=== PATIENT | male | born 1990 | race Caucasian/White ===

== ENCOUNTER 2017-03-29 17:50 | Emergency (ER) | payer BC ==
[2017-03-29] MEDS ORDERED: LORazepam TAB(*) 0.5 MG PO ONE (18:07)
[2017-03-29 18:13] VITALS: BP 123/80
[2017-03-29] MEDS ORDERED: LORazepam TAB(*) 1 MG PO ONE (19:25)
--- NOTE | 2017-03-29 20:12 | ED ---
Psychiatric Complaint - HPI Summary HPI Summary: Patient presents to the ED with CC of anxiety. His is currently in the ED and he checked in immediately following stating he gets anxiety about family members health. His heart began to race and he felt flushed per patient. He is resting comfortably and sleeping on physical exam by provider. He states he developed anxiety about 1 year ago after his grandfather had an episode in the hospital. He states he does not wish to be with his as this would worsen his anxiety, but does not want to go home because he feels he should be with her. Denies other pain or complaints. Prescribed an anxiety medication which has at home, but has not taken anything. Does not recall the name of the medication. - History Of Current Complaint Chief Complaint: EDGeneral Time Seen by Provider: 03/29/17 18:06 Hx Obtained From: Patient Onset/Duration: Sudden Onset Timing: Constant Severity Initially: Moderate Severity Currently: None Character: Anxious Aggravating Factor(s): Recent Stress Associated Signs And Symptoms: Positive: Negative - Risk Factor(s) Completed Suicide Risk Factors: Male - Allergies/Home Medications Allergies/Adverse Reactions: Allergies Allergy/AdvReac Type Severity Reaction Status Date / Time Amoxicillin Allergy Intermediate Rash Verified 12/31/15 18:39 PMH/Surg Hx/FS Hx/Imm Hx Previously Healthy: Yes Endocrine/Hematology History: Denies: Hx Diabetes, Hx Thyroid Disease Cardiovascular History: Denies: Hx Hypertension Respiratory History: Denies: Hx Asthma, Hx Chronic Obstructive Pulmonary Disease (COPD) GI History: Denies: Hx Ulcer - Surgical History Surgery Procedure, Year, and Place: part of small intestine removed - Immunization History Date of Tetanus Vaccine: UTD Date of Influenza Vaccine: NO Hx Pertussis Vaccination: No Immunizations Up to Date: Unable to Obtain/Confirm Infectious Disease History: No Infectious Disease History: Denies: Hx Clostridium Difficile, Hx Hepatitis, Hx Human Immunodeficiency Virus (HIV), Hx of Known/Suspected MRSA, Hx Shingles, Hx Tuberculosis, Hx Known/ Suspected VRE, Hx Known/Suspected VRSA, History Other Infectious Disease, Traveled Outside the [place] in Last 30 Days - Family History Known Family History: Positive: Cardiac Disease, Hypertension Negative: Diabetes - Social History Occupation: Unemployed Lives: With Family Alcohol Use: Rare Hx Substance Use: No Substance Use Type: Reports: None Hx Tobacco Use: No Smoking Status (MU): Never Smoked Tobacco Review of Systems Constitutional: Negative Negative: Fever, Chills, Fatigue Eyes: Negative Cardiovascular: Negative Respiratory: Negative Genitourinary: Negative Positive: no symptoms reported, see HPI Musculoskeletal: Negative Neurological: Negative Positive: Anxious All Other Systems Reviewed And Are Negative: Yes Physical Exam Triage Information Reviewed: Yes Vital Signs On Initial Exam: Initial Vitals Temp Pulse Resp BP Pulse Ox 98.6 F 94 16 123/80 98 03/29/17 18:08 03/29/17 18:08 03/29/17 18:08 03/29/17 18:08 03/29/17 18:08 Vital Signs Reviewed: Yes Appearance: Positive: Well-Appearing, Well-Nourished Skin: Positive: Warm, Skin Color Reflects Adequate Perfusion Head/Face: Positive: Normal Head/Face Inspection Eyes: Positive: Normal, COMFORT, Conjunctiva Clear Neck: Positive: Supple, Nontender, No Lymphadenopathy Respiratory/Lung Sounds: Positive: Clear to Auscultation, Breath Sounds Present Cardiovascular: Positive: Normal, RRR, Pulses are Symmetrical in both Upper and Lower Extremities Neurological: Positive: Speech Normal Psychiatric: Positive: Normal - on physical exam, patient appears to be in NAD AVPU Assessment: Alert - Karissa Coma Scale Coma Scale Total: 15 Diagnostics - Vital Signs Vital Signs Temp Pulse Resp BP Pulse Ox 03/29/17 19:41 14 03/29/17 18:47 18 03/29/17 18:08 98.6 F 94 16 123/80 98 - Laboratory Lab Statement: Any lab studies that have been ordered have been reviewed, and results considered in the medical decision making process. Course/Dx - Course Course Of Treatment: During the course of treatment, he is given .5mg ativan with minimal relief. He is given another 1mg with mild relief. He continues to state he does not wish to see his in the ED for fear he will have worsening anxiety. It was explained to the patient he would be unable to stay in the ED while awaiting his wifes recovery and will need to be discharged home. He agrees with plan and is OK for discharge. - Differential Dx/Clinical Impression Differential Diagnosis/HQI/PQRI: Positive: Anxiety Provider Diagnosis: Anxiety Discharge - Discharge Plan Condition: Stable Disposition: HOME Patient Education Materials: Anxiety (ED) Referrals: Zia Osuna MD [Primary Care Provider] - Additional Instructions: Please follow up with PCP regarding any worsening anxiety. Take at home medications as prescribed for anxiety or symptoms of anxiety such as heart racing, sweating or shortness of breath For any worsening symptoms, return to the ED
== END 2017-03-29 20:08 | disposition home or self-care (01) ==
LOC: ED 17:50
DX: F41.9 Anxiety disorder, unspecified (principal)
CPT/HCPCS: 99281; A9270-GY

== ENCOUNTER 2019-03-11 13:00 | Emergency (ER) | payer BC ==
[2019-03-11 13:22] VITALS: BP 126/76
--- NOTE | 2019-03-11 14:02 | UC ---
Throat Pain/Nasal Kevin HPI - HPI Summary HPI Summary: 28 year old male , no pmh, presents with sore throat since th. Both and daughter infected with strep throat. + swollen glands, increased in size today, no SOB, no difficulty swallowing/ FB sensation. no body aches, [place]. + fever day 1, none since. No other complaints. concerns. - History of Current Complaint Chief Complaint: UCRespiratory Stated Complaint: POSS STREP THROAT Time Seen by Provider: 03/11/19 13:56 Hx Obtained From: Patient Onset/Duration: Sudden Onset, Lasting Days Severity: Mild Pain Intensity: 1 Pain Scale Used: 0-10 Numeric Associated Signs & Symptoms: Negative: Dysphagia, FB Sensation, Drooling, Fever - Allergies/Home Medications Allergies/Adverse Reactions: Allergies Allergy/AdvReac Type Severity Reaction Status Date / Time amoxicillin Allergy Rash Verified 03/11/19 13:22 PMH/Surg Hx/FS Hx/Imm Hx Previously Healthy: Yes - Surgical History Surgical History: Yes Surgery Procedure, Year, and Place: Part of small intestine removed - Family History Known Family History: Positive: Cardiac Disease, Hypertension, Non-Contributory Negative: Diabetes - Social History Occupation: Employed Full-time Alcohol Use: None Substance Use Type: None Smoking Status (MU): Never Smoked Tobacco Review of Systems All Other Systems Reviewed And Are Negative: Yes Constitutional: Negative: Fever, Chills, Fatigue Skin: Negative: Rash ENT: Positive: Sore Throat. Negative: Ear Ache, Nasal Discharge, Sinus Congestion, Sinus Pain/Tenderness Respiratory: Negative: Shortness Of Breath Cardiovascular: Negative: Chest Pain Is Patient Immunocompromised?: No Physical Exam Triage Information Reviewed: Yes Appearance: Well-Appearing, No Pain Distress, Well-Nourished Vital Signs: Initial Vital Signs Temp 97.7 F 03/11/19 13:20 Pulse 76 03/11/19 13:20 Resp 12 03/11/19 13:20 BP 126/76 03/11/19 13:20 Pulse Ox 99 03/11/19 13:20 Vital Signs Reviewed: Yes Eyes: Positive: Conjunctiva Clear ENT: Positive: Pharyngeal erythema, TMs normal, Tonsillar swelling - grade 3, Uvula midline. Negative: TM bulging, TM dull, TM red, Tonsillar exudate, Sinus tenderness Neck: Positive: Supple, Nontender, No Lymphadenopathy. Negative: Nuchal Rigidity, Enlarged Nodes @ Respiratory: Positive: Chest non-tender, Lungs clear, Normal breath sounds, No respiratory distress, No accessory muscle use. Negative: Crackles, Rhonchi, Stridor, Wheezing Cardiovascular: Positive: RRR Musculoskeletal Exam: Normal Neurological Exam: Normal Throat Pain/Nasal Course/Dx - Course Course Of Treatment: Strep throat: - Antibiotics given- relative of penicillin, if rash, shortness of breath occur , stop, return to ER, Urgent care or call for new antibiotic - Increase fluids to prevent dehydration - Motrin / Tylenol as needed for pain, fever - Over the counter medications for sore throat. - Differential Dx/Diagnosis Differential Diagnosis/HQI/PQRI: Pharyngitis, URI Provider Diagnosis: Strep throat Discharge ED - Sign-Out/Discharge Documenting (check all that apply): Patient Departure All imaging exams completed and their final reports reviewed: No Studies - Discharge Plan Condition: Good Disposition: HOME Prescriptions: cephALEXin [Keflex] 500 mg PO BID #20 capsule Patient Education Materials: Strep Throat (DC) Referrals: Zia Osuna MD [Primary Care Provider] - Additional Instructions: - Antibiotics given- relative of penicillin, if rash, shortness of breath occur , stop, return to ER, Urgent care or call for new antibiotic - Increase fluids to prevent dehydration - Motrin / Tylenol as needed for pain, fever - Over the counter medications for sore throat. - Billing Disposition and Condition Condition: GOOD Disposition: Home
== END 2019-03-11 14:10 | disposition home or self-care (01) ==
LOC: UCEAST 13:00
DX: J02.0 Streptococcal pharyngitis (principal); Z88.0 Allergy status to penicillin
CPT/HCPCS: 87651; 99212; G0463

== ENCOUNTER 2019-06-17 17:41 | Emergency (ER) | payer BC ==
--- OUTSIDE RECORDS SUMMARY | 2019-06-17 18:45 | XMS REPORT | Continuity of Care Document ---
:1990 External Reference #:[id number] Author Name Zia Osuna M.D. Address [address] [place] [address] [address] [place] [address] Care Team Providers Name Role Phone HCP given Care Team Information Sales Negotiator Unavailable Radha Cannon, RD, CDN, Cde - Care Team Information Sales Negotiator [phone] Dietitian, Registered Problems Description No Information Available Social History Type Date Description Comments Sex Unknown Tobacco Use Reviewed: 05/13/19 Never Smoked Cigarettes Smoking Status Reviewed: 05/13/19 Never Smoked Cigarettes Enjoy Exercising PT States Excercises Regularly (NOS) Allergies, Adverse Reactions, Alerts Active Allergies Reaction Severity Comments Date Amoxicillin per pt/states as baby-not to have again 06/03/2008 Medications Active Medications SIG Qnty Indications Ordering Provider Date Paroxetine HCL take 1 tablet by 90tabs F41.0 Zia Osuna, 05/22/2017 20mg mouth daily ; M.D. Tablets for mood F41.9 Zyrtec Allergy 1 by mouth every day as Needed Unknown 03/06/2017 10mg Tablets History Medications Doxycycline Hyclate 2 caps by mouth x1 2caps Zia Osuna, 01/28/2019 - dose, for lyme M.D. 01/29/2019 100mg Capsules disease prevention Immunizations CPT Code Status Date Vaccine Lot # [id number] Given 05/13/2019 Influenza Virus Vaccine, Quadrivalent, Split, [id number] Preservative Free 63098 Given 03/07/2017 Adacel or Boostrix, TDaP [id number] 58395 Given 02/26/2005 Flu, Split Virus 3Yrs 57169 Given 02/26/2005 Flu, Split Virus 3Yrs 66596 Given 02/24/2003 Flu, Split Virus 3Yrs 24982 Given 02/24/2003 Flu, Split Virus 3Yrs 60189 Given 11/25/2002 Td Immunization 33023 Given 08/08/1996 Hep B Immunization, Adolescent/High Risk Infant 30330 Given 03/07/1996 Hep B Immunization, Adolescent/High Risk 83475 Given 02/05/1996 Hep B Immunization, Adolescent/High Risk U-Flu Refused 05/07/2018 Influenza,Unspecified 54186 Refused 03/07/2017 Influenza Virus Vaccine, Quadrivalent, Split, Preservative Free Vital Signs Date Vital Result Comment 05/13/2019 3:52pm BP Systolic 118 mmHg BP Diastolic 76 mmHg Height 69.75 inches 5'9.75" Weight 214.50 lb BMI (Body Mass Index) 31.0 kg/m2 12/04/2018 3:52pm BP Systolic 110 mmHg BP Diastolic 72 mmHg Height 69.5 inches 5'9.50" Weight 207.00 lb BMI (Body Mass Index) 30.1 kg/m2 Results Test Acquired Facility Test Result H/L Range Note Date Laboratory test 03/11/2019 [facility] Rapid Strep POSITIVE Abnormal Negative 1 finding [phone] Molecular 1 Apprentice Machinist Outside: [id number] Procedures Description No Information Available Medical Devices Description No Information Available Encounters Type Date Location Provider Dx Diagnosis Office Visit 05/13/2019 Main Office Zia Osuna, F41.9 Anxiety disorder, 3:30p M.Malachi unspecified Z23 Encounter for immunization R41.840 Attention and concentration deficit Z68.31 Body mass index (BMI) 31.0-31.9, adult Office Visit 12/04/2018 3:30p Main Office Zia Osuna, Z00.00 Encntr for [facility] general adult medical exam w/o abnormal findings Z02.89 Encounter for other administrative examinations Z68.30 Body mass index (BMI) 30.0-30.9, adult Assessments Date Code Description Provider 05/13/2019 F41.9 Anxiety disorder, unspecified Zia Osuna M.D. 05/13/2019 Z23 Encounter for immunization Zia Osuna M.D. 05/13/2019 R41.840 Attention and concentration deficit Zia Osuna M.D. 05/13/2019 Z68.31 Body mass index (BMI) 31.0-31.9, adult Zia Osuna M.D. 12/04/2018 Z00.00 Encounter for general adult medical Zia Osuna M.D. examination without abnormal findings 12/04/2018 Z02.89 Encounter for other administrative Zia Osuna M.D. examinations 12/04/2018 Z68.30 Body mass index (BMI) 30.0-30.9, adult iZa Osuna M.D. Plan of Treatment Future Appointment(s):11/12/2019 4:30 pm - Zia Osuna M.D. at [facility]/13/2019 - Zia Osuna M.D.F41.9 Anxiety disorder, unspecifiedComments:Doing well. Continue paroxetine. Counseled regarding relationship issues w/ his spouse, discussed that staying in relationship b/o fear if he leaves that his spouse will get more depressed or suicidal was not really a good reason for him to stay in the relationship group home and sthat he should consider developing a better plan with some time restraints, but he really isn't interested in changing things.Follow up:RTO 6 [id number] Encounter for immunizationComments:Encouraged flu vaccine wc was [id number] Attention and concentration deficitComments:Possible ADHD given he describes Sxs go back many years. He is using a caffeinated drink w/ B vitamins wc is working well so there is really no good reason for us to consider other options.Z68.31 Body mass index (BMI) 31.0-31.9, adult Functional Status Description No Information Available Mental Status Description No Information Available Referrals Description No Information Available
[2019-06-17 19:09] VITALS: BP 118/80
--- NOTE | 2019-06-17 19:20 | UC ---
UC General HPI - HPI Summary HPI Summary: pt present with SO. Pt with med history including crohn's disease s/p resection - no current treatment. Pt with rapid develop of fevers, back pain, decreased urine since last night. Pt has been taking APAP/ ibuprofen with improvement. No rash. + cough mild congestion. Pt states "feels terrible" with decreased po today Tmax 103 Medications as entered in EMR by polyethylene bag machine operator reviewed this visit - History of Current Complaint Chief Complaint: UCGeneralIllness Stated Complaint: BODY ACHES Time Seen by Provider: 06/17/19 19:17 Hx Obtained From: Patient Onset/Duration: Gradual Onset Onset Severity: Moderate Current Severity: Moderate Pain Intensity: 10 - Allergy/Home Medications Allergies/Adverse Reactions: Allergies Allergy/AdvReac Type Severity Reaction Status Date / Time amoxicillin Allergy Rash Verified 06/17/19 19:09 Home Medications: Home Medications Cetirizine* [ZyrTEC 10 MG TAB*] 10 mg PO DAILY 06/17/19 [History Confirmed 06/17] PARoxetine HCL TAB* [Paxil TAB*] 10 mg PO DAILY 06/17/19 [History Confirmed ] PMH/Surg Hx/FS Hx/Imm Hx Previously Healthy: No - 1 kidney from , Crohn's - Surgical History Surgical History: Yes Surgery Procedure, Year, and Place: Part of small intestine removed - Family History Known Family History: Positive: Cardiac Disease, Hypertension, Non-Contributory Negative: Diabetes - Social History Occupation: Employed Full-time Lives: With Family Alcohol Use: Occasionally Substance Use Type: None Smoking Status (MU): Never Smoked Tobacco Review of Systems All Other Systems Reviewed And Are Negative: Yes Constitutional: Positive: Fever, Fatigue ENT: Positive: Sinus Congestion Respiratory: Positive: Negative Cardiovascular: Positive: Negative Gastrointestinal: Positive: Nausea, Other - back pain. Negative: Abdominal Pain Genitourinary: Positive: Other - decrease urine productiong Motor: Positive: Negative Neurovascular: Positive: Negative Musculoskeletal: Positive: Other: - back pain Physical Exam - Summary Physical Exam Summary: Vital Signs Reviewed: Yes A+Ox3, tired appearing, uncomfortable Eyes: Conjunctiva Clear, CMOFORT. EOM intact and full ENT: Hearing grossly normal TM x 2 clear, turbiantes inflammed, lips dry, mmpasty, uvula midline, no exudate, no erythema Neck: Positive: Supple Respiratory: Positive: No respiratory distress, No accessory muscle use + CTA throughout no w/r Cardiovascular: RRR nl s1, s2 no m/r CBT <2 sec abd soft + BS nt/nd no guarding, no distension Musculoskeletal Exam: ALDRIDGE x 4 without difficulty Strength Intact, ROM Intact Neurological: Positive: Alert, + sensation throughout Psychological: Positive: Normal Response To corporate buyer Skin: Positive: no rash, no ecchymosis Triage Information Reviewed: Yes Vital Signs: Initial Vital Signs Temp 98.5 F 06/17/19 19:04 Pulse 124 06/17/19 19:04 Resp 17 06/17/19 19:04 BP 118/80 06/17/19 19:04 Pulse Ox 99 06/17/19 19:04 Course/Dx - Course Course Of Treatment: Pt presents to reporting fevers (tmax 103), fatigue, nausea, decreased po, and low back pain progressive x 24 hours. Pt is taking ibuprofen, apap with improvement. Pt with h/o Crohn's s/p resection - no active treatment. pt also with 1 kidney vitals reviewed pt appears tired and uncomfortable - not colicky mild dehydrated pt with neg influenza but 3+ blood in urine recommend pt go to ED for labs, IV fluid, imaging pt and spouse in agreement - will drive would like to go to [facility] -report to HARESH Paulino in ED discharge with recommendation - Diagnoses Provider Diagnosis: Fever, Back pain, Microscopic hematuria Discharge ED - Sign-Out/Discharge Documenting (check all that apply): Patient Departure All imaging exams completed and their final reports reviewed: No Studies - Discharge Plan Condition: Stable Disposition: HOME-RECOMMEND TO ED Referrals: Zia Osuna MD [Primary Care Provider] - Additional Instructions: The doctor that evaluated you today thinks that you need additional testing that can be completed the emergency department. It is recommended that you go directly to emergency department for further evaluation. This evaluation may include blood work or imaging. This testing will be directed and decided by the provider that evaluate you at the emergency department. If pain becomes worse, you feel lightheaded, you have uncontrolled vomiting, or you have any other concerns while you are being driven to emergency department as recommended to pullover and contact 911. - Billing Disposition and Condition Condition: STABLE Disposition: Home-Recommend to ED
[2019-06-17] MEDS ORDERED: Acetaminophen TAB* 325 MG PO ONE (19:39)
[2019-06-17 19:47] LABS: Influenza A Molecular Negative (Negative); Influenza B Molecular Negative (Negative)
== END 2019-06-17 20:05 | disposition home health service (06) ==
LOC: UCCORT 17:41
DX: R31.29 Other microscopic hematuria (principal); M54.5 Low back pain; R50.9 Fever, unspecified; R53.83 Other fatigue; E86.0 Dehydration; R11.0 Nausea; R09.81 Nasal congestion; Z88.0 Allergy status to penicillin
CPT/HCPCS: 81003; 99212; A9270-GY; G0463